=== PATIENT | female | born 1970 | race African-American/Black ===

== ENCOUNTER 2017-06-20 16:08 | Day surgery (SDC) | payer OTHER ==
[2017-06-20] MEDS ORDERED: OMALIZUMAB 150 MG/VIAL ML SQ ONE (16:45)
[2017-06-20] MEDS ORDERED: EPINEPHrine/PF 1 MG/1 ML (1:1,000) AMPULE SQ PRN (16:47)
[2017-06-20 19:10] VITALS: BP 129/71; PULSE 75; TEMP 98.3
== END 2017-06-20 19:53 | disposition home or self-care (01) ==
LOC: JINFUSION 16:08 → J7W 16:09 → JINFUSION 19:53
PROVIDERS: ATTEND Internal Medicine
PROC: 3E013GC Introduction of Other Therapeutic Substance into Subcutaneous Tissue, Percutaneous Approach (ICD-10-PCS; principal; 2017-06-20)
DX: J45.50 Severe persistent asthma, uncomplicated (principal)
CPT/HCPCS: 96372; J2357

== ENCOUNTER 2017-07-25 10:19 | Day surgery (SDC) | payer OTHER ==
[2017-07-25] MEDS ORDERED: OMALIZUMAB 150 MG/VIAL ML SQ ONE ×2 (10:45→11:00)
[2017-07-25 10:46] VITALS: TEMP 98.4
[2017-07-25] MEDS ORDERED: EPINEPHrine/PF 1 MG/1 ML (1:1,000) AMPULE SQ PRN (10:52)
[2017-07-25 12:05] VITALS: PULSE 75
[2017-07-25 12:09] VITALS: BP 139/87
== END 2017-07-25 12:09 | disposition home or self-care (01) ==
LOC: JINFUSION 10:19
PROVIDERS: ATTEND Internal Medicine
PROC: 3E013GC Introduction of Other Therapeutic Substance into Subcutaneous Tissue, Percutaneous Approach (ICD-10-PCS; principal; 2017-07-25)
DX: J45.50 Severe persistent asthma, uncomplicated (principal)
CPT/HCPCS: 96372; J2357

== ENCOUNTER 2017-10-25 09:46 | Day surgery (SDC) | payer OTHER ==
[2017-10-25 10:25] VITALS: BP 140/83; PULSE 84; TEMP 98.8
[2017-10-25] MEDS ORDERED: EPINEPHrine/PF 1 MG/1 ML (1:1,000) AMPULE SQ PRN (10:43)
[2017-10-25] MEDS ORDERED: OMALIZUMAB 150 MG/VIAL ML SQ ONE (10:45)
== END 2017-10-25 12:00 | disposition home or self-care (01) ==
LOC: JINFUSION 09:46 → J7W 09:47 → JINFUSION 12:00
PROVIDERS: ATTEND Internal Medicine
PROC: 3E013GC Introduction of Other Therapeutic Substance into Subcutaneous Tissue, Percutaneous Approach (ICD-10-PCS; principal; 2017-10-25)
DX: J45.50 Severe persistent asthma, uncomplicated (principal)
CPT/HCPCS: 96372; J2357

== ENCOUNTER → 2018-01-03 | Day surgery (SDC) | payer OTHER ==
[~2018-01-03] MED LIST: EPINEPHrine/PF 1 MG/1 ML (1:1,000) AMPULE ONE; EPINEPHrine/PF 1 MG/1 ML (1:1,000) AMPULE SQ ONE; OMALIZUMAB 150 MG/VIAL ML SQ ONE
[2018-01-03 13:31] VITALS: BP 129/77; PULSE 68; TEMP 98.8
== END | disposition home or self-care (01) ==
LOC: JINFUSION 10:46
PROVIDERS: ATTEND Internal Medicine
PROC: 3E013GC Introduction of Other Therapeutic Substance into Subcutaneous Tissue, Percutaneous Approach (ICD-10-PCS; principal; 2018-01-03)
DX: J45.50 Severe persistent asthma, uncomplicated (principal)
CPT/HCPCS: 96372; J2357

== ENCOUNTER 2018-02-15 10:09 | Day surgery (SDC) | payer OTHER ==
[2018-02-15] MEDS ORDERED: EPINEPHrine 1:1,000 0.3 MG/0.3 ML SYR IM PRN (10:40)
[2018-02-15] MEDS ORDERED: OMALIZUMAB 150 MG/VIAL ML SQ ONE (10:45)
[2018-02-15 12:15] VITALS: TEMP 98.2
[2018-02-15 12:16] VITALS: BP 145/74; PULSE 72
== END 2018-02-15 12:16 | disposition home or self-care (01) ==
LOC: JINFUSION 10:09 → J7W 10:09 → JINFUSION 12:16
PROVIDERS: ATTEND Internal Medicine
PROC: 3E013GC Introduction of Other Therapeutic Substance into Subcutaneous Tissue, Percutaneous Approach (ICD-10-PCS; principal; 2018-02-15)
DX: J45.50 Severe persistent asthma, uncomplicated (principal)
CPT/HCPCS: 96372; J2357

== ENCOUNTER 2018-03-21 11:44 | Day surgery (SDC) | payer OTHER ==
[~2018-03-21 11:44] MED LIST changes: -EPINEPHrine/PF 1 MG/1 ML (1:1,000) AMPULE ONE; -EPINEPHrine/PF 1 MG/1 ML (1:1,000) AMPULE SQ ONE; +EPINEPHrine/PF 1 MG/1 ML (1:1,000) AMPULE SQ PRN
[2018-03-21 12:41] VITALS: BP 130/75; PULSE 74; TEMP 97.7
== END 2018-03-21 13:00 | disposition home or self-care (01) ==
LOC: JINFUSION 11:44
PROVIDERS: ATTEND Internal Medicine
PROC: 3E013GC Introduction of Other Therapeutic Substance into Subcutaneous Tissue, Percutaneous Approach (ICD-10-PCS; principal; 2018-03-21)
DX: J45.50 Severe persistent asthma, uncomplicated (principal)
CPT/HCPCS: 96372; J2357

== ENCOUNTER 2018-05-21 15:20 | Day surgery (SDC) | payer OTHER ==
[2018-05-21] MEDS ORDERED: EPINEPHrine/PF 1 MG/1 ML (1:1,000) AMPULE SQ PRN (15:56)
[2018-05-21] MEDS ORDERED: OMALIZUMAB 150 MG/VIAL ML SQ ONE (16:00)
[2018-05-21 17:11] VITALS: TEMP 97.9
[2018-05-21 17:24] VITALS: BP 135/73; PULSE 69
== END 2018-05-21 17:30 | disposition home or self-care (01) ==
LOC: JINFUSION 15:20 → J7W 15:20 → JINFUSION 17:30
PROVIDERS: ATTEND Internal Medicine
PROC: 3E013GC Introduction of Other Therapeutic Substance into Subcutaneous Tissue, Percutaneous Approach (ICD-10-PCS; principal; 2018-05-21)
DX: J45.50 Severe persistent asthma, uncomplicated (principal)
CPT/HCPCS: 96372; J2357

== ENCOUNTER 2018-07-25 15:20 | Day surgery (SDC) | payer OTHER ==
[2018-07-25] MEDS ORDERED: EPINEPHrine/PF 1 MG/1 ML (1:1,000) AMPULE SQ PRN (16:05)
[2018-07-25] MEDS ORDERED: OMALIZUMAB 150 MG/VIAL ML SQ ONE (16:30)
[2018-07-25 16:44] VITALS: TEMP 98.7
[2018-07-25 16:47] VITALS: BP 131/79; PULSE 62
== END 2018-07-25 16:54 | disposition home or self-care (01) ==
LOC: JINFUSION 15:20 → J7W 15:48 → JINFUSION 16:54
PROVIDERS: ATTEND Internal Medicine
PROC: 3E013GC Introduction of Other Therapeutic Substance into Subcutaneous Tissue, Percutaneous Approach (ICD-10-PCS; principal; 2018-07-25)
DX: J45.50 Severe persistent asthma, uncomplicated (principal)
CPT/HCPCS: 96372; J2357

== ENCOUNTER 2018-09-11 15:15 | Day surgery (SDC) | payer OTHER ==
[2018-09-11] MEDS ORDERED: OMALIZUMAB 150 MG/VIAL ML SQ ONE (16:00)
[2018-09-11] MEDS ORDERED: EPINEPHrine/PF 1 MG/1 ML (1:1,000) AMPULE SQ ONE (16:00)
[2018-09-11 16:59] VITALS: TEMP 97.9
[2018-09-11 17:01] VITALS: BP 132/77; PULSE 73
== END 2018-09-11 17:02 | disposition home or self-care (01) ==
LOC: JINFUSION 15:15 → J7W 15:15 → JINFUSION 17:02
PROVIDERS: ATTEND Internal Medicine
PROC: 3E013GC Introduction of Other Therapeutic Substance into Subcutaneous Tissue, Percutaneous Approach (ICD-10-PCS; principal; 2018-09-11)
DX: J45.50 Severe persistent asthma, uncomplicated (principal)
CPT/HCPCS: 96372; J2357

== ENCOUNTER 2018-11-11 15:22 | Day surgery (SDC) | payer OTHER ==
[2018-11-11] MEDS ORDERED: EPINEPHrine/PF 1 MG/1 ML (1:1,000) AMPULE SQ PRN (16:08)
[2018-11-11] MEDS ORDERED: OMALIZUMAB 150 MG/VIAL ML SQ ONE (16:15)
[2018-11-11 18:10] VITALS: TEMP 97.9
[2018-11-11 18:11] VITALS: BP 110/72; PULSE 81
== END 2018-11-11 17:20 | disposition home or self-care (01) ==
LOC: JINFUSION 15:22 → J7W 15:33 → JINFUSION 17:20
PROVIDERS: ATTEND Internal Medicine
PROC: 3E013GC Introduction of Other Therapeutic Substance into Subcutaneous Tissue, Percutaneous Approach (ICD-10-PCS; principal; 2018-11-11)
DX: J45.50 Severe persistent asthma, uncomplicated (principal)
CPT/HCPCS: 96372; J2357

== ENCOUNTER 2018-12-19 15:28 | Day surgery (SDC) | payer OTHER ==
[2018-12-19] MEDS ORDERED: OMALIZUMAB 150 MG/VIAL ML SQ ONE (15:45)
[2018-12-19] MEDS ORDERED: EPINEPHrine 1:1,000 - 30 MG/30 ML VIAL SQ ONE (15:45)
[2018-12-19 16:18] VITALS: TEMP 97.8
[2018-12-19] MEDS ORDERED: EPINEPHrine 1:1,000 - 30 MG/30 ML VIAL SQ PRN (16:33)
[2018-12-19 17:14] VITALS: BP 119/72; PULSE 72
== END 2018-12-19 17:00 | disposition home or self-care (01) ==
LOC: JINFUSION 15:28 → J7W 15:30 → JINFUSION 17:00
PROVIDERS: ATTEND Internal Medicine
PROC: 3E013GC Introduction of Other Therapeutic Substance into Subcutaneous Tissue, Percutaneous Approach (ICD-10-PCS; principal; 2018-12-19)
DX: J45.50 Severe persistent asthma, uncomplicated (principal)
CPT/HCPCS: 96372; J2357

== ENCOUNTER 2019-02-02 15:57 | Day surgery (SDC) | payer OTHER | END 2019-02-02 17:57 | disposition home or self-care (01) | LOC: JINFUSION 15:57 → J7W 16:39 → JINFUSION 17:57 ==

== ENCOUNTER 2019-02-19 15:20 | Day surgery (SDC) | payer OTHER ==
[2019-02-19] MEDS ORDERED: EPINEPHrine/PF 1 MG/1 ML (1:1,000) AMPULE SQ PRN (15:40)
[2019-02-19] MEDS ORDERED: OMALIZUMAB 150 MG/VIAL ML SQ ONE (15:45)
[2019-02-19 16:28] VITALS: BP 141/87; PULSE 88; TEMP 97.9
== END 2019-02-19 16:28 | disposition home or self-care (01) ==
LOC: JINFUSION 15:20 → J7W 15:22 → JINFUSION 16:28
PROVIDERS: ATTEND Internal Medicine
PROC: 3E013GC Introduction of Other Therapeutic Substance into Subcutaneous Tissue, Percutaneous Approach (ICD-10-PCS; principal; 2019-02-19)
DX: J45.50 Severe persistent asthma, uncomplicated (principal)
CPT/HCPCS: 96372; J2357

== ENCOUNTER 2019-03-26 12:56 | Day surgery (SDC) | payer OTHER ==
[2019-03-26] MEDS ORDERED: EPINEPHrine/PF 1 MG/1 ML (1:1,000) AMPULE SQ PRN (13:21)
[2019-03-26] MEDS ORDERED: OMALIZUMAB 150 MG/VIAL ML SQ ONE (13:30)
[2019-03-26 19:09] VITALS: BP 144/72; PULSE 82; TEMP 98.4
== END 2019-03-26 14:30 | disposition home or self-care (01) ==
LOC: JINFUSION 12:56 → J7W 13:11 → JINFUSION 14:30
PROVIDERS: ATTEND Internal Medicine
PROC: 3E013GC Introduction of Other Therapeutic Substance into Subcutaneous Tissue, Percutaneous Approach (ICD-10-PCS; principal; 2019-03-26)
DX: J45.50 Severe persistent asthma, uncomplicated (principal)
CPT/HCPCS: 96372; J2357

== ENCOUNTER 2019-04-03 12:54 | Emergency (ER) | payer OTHER ==
[2019-04-03 12:59] VITALS: BP 118/78; PULSE 79; TEMP 97.8; BMI 39.9
--- NOTE | 2019-04-03 13:29 | PDOC ---
History of Present Illness - General Chief Complaint: Injury Stated Complaint: RT.FOOT PAIN Time Seen by Provider: 04/03/19 13:00 History Source: Patient Exam Limitations: No Limitations - History of Present Illness Initial Comments: 04/03/19 13:32 While at work this morning, [facility] alf, slipped and twisted right ankle , causing an inversion-type injury. States elevated and used ice packs but has continued pain and swelling. Occurred: reports: this morning Severity: reports: mild, moderate Pain Location: reports: lower extremity (right ankle) Method of Injury: Yes: fall Modifying Factors: improves with: cold therapy Loss of Consciousness: no loss of consciousness Associated Symptoms (Fall): denies symptoms Past History - Travel Traveled outside of the country in the last 30 days: No Close contact w/someone who was outside of country & ill: No - Past Medical History Allergies/Adverse Reactions: Allergies Allergy/AdvReac Type Severity Reaction Status Date / Time No Known Allergies Allergy Verified 04/03/19 12:59 Home Medications: Ambulatory Orders Salmeterol/Fluticasone [Advair 250Mcg/50Mcg -] 1 each IH DAILY 06/03/12 Theophylline Anhydrous [Theophylline] 600 mg PO DAILY 06/03/12 Tiotropium [place] [Spiriva] 1 inh IH DAILY 06/03/12 Asthma: Yes COPD: No - Surgical History Abdominal Surgery: Yes Appendectomy: Yes - Suicide/Smoking/Psychosocial Hx Smoking Status: No Smoking History: Never smoked Have you smoked in the past 12 months: No Number of Cigarettes Smoked Daily: 0 Information on smoking cessation initiated: No Hx Alcohol Use: No Drug/Substance Use Hx: No Substance Use Type: None Review of Systems - Review of Systems Able to Perform ROS?: Yes Is the patient limited Swedish proficient: Yes Constitutional: Yes: Symptoms Reported, See HPI Musculoskeletal: Yes: Symptoms Reported, Joint Pain, Joint Swelling All Other Systems: Reviewed and Negative *Physical Exam - Vital Signs Last Vital Signs Temp Pulse Resp BP Pulse Ox 97.8 F 79 19 118/78 99 04/03/19 12:57 04/03/19 12:57 04/03/19 12:57 04/03/19 12:57 04/03/19 12:57 - Physical Exam General Appearance: Yes: Nourished, Appropriately Dressed, Apparent Distress, Mild Distress HEENT: positive: SLICK, Normal ENT Inspection, TMs Normal, Pharynx Normal Neck: positive: Supple. negative: Tender Respiratory/Chest: positive: Lungs Clear Musculoskeletal: positive: Normal Inspection Extremity: positive: Normal Capillary Refill, Normal Range of Motion (patient has minimal tenderness to ankle joint, no true point tenderness to medial or lateral malleolus, no navicular or fifth metatarsal pain. Pain is primarily soft tissue in the midfoot ligamentous areas. Negative squeeze test. Neurovascular intact to toes.) Integumentary: positive: Normal Color, Dry, Warm Neurologic: positive: risk reduction counselor II-XII NML intact, Fully Oriented, Alert, Normal Mood/ Affect, Normal Response, Motor Strength 03/29 ED Treatment Course - RADIOLOGY Radiology Studies Ordered: Category Date Time Status ANKLE-RIGHT [RAD] Stat Radiology 04/03/19 13:00 Ordered *DC/Admit/Observation/Transfer Diagnosis at time of Disposition: Right ankle sprain Qualifiers: Encounter type: initial encounter Involved ligament of ankle: unspecified ligament Qualified Code(s): S93.401A - Sprain of unspecified ligament of right ankle, initial encounter - Discharge Dispostion Disposition: HOME Condition at time of disposition: Stable Decision to Admit order: No - Referrals Referrals: Gen Rocha MD [Staff Physician] - - Patient Instructions Printed Discharge Instructions: DI for Ankle Sprain Additional Instructions: Rest, ice to area on and off for 15 minutes 4-6 times a day Avoid heavy lifting or exercise until pain and swelling is resolved or until further directed Keep area highly elevated to reduce swelling Use splints/Jac wrap as directed Followup with orthopedist in one to 2 days if not improving, if significantly improved may wait one week for followup with orthopedist May use ibuprofen every 6 hours as needed for pain - Post Discharge Activity Forms/Work/School Notes: Back to Work
== END 2019-04-03 13:40 | disposition home or self-care (01) ==
LOC: JERFT 12:54
DX: S93.401A Sprain of unspecified ligament of right ankle, initial encounter (principal); W01.0XXA Fall on same level from slipping, tripping and stumbling without subsequent striking against object, initial encounter; Y93.89 Activity, other specified; Y92.129 Unspecified place in nursing home as the place of occurrence of the external cause; Y99.0 Civilian activity done for income or pay
CPT/HCPCS: 73610-TC-RT-FY; 99281-25

== ENCOUNTER 2019-05-01 15:16 | Day surgery (SDC) | payer OTHER | END 2019-05-01 17:05 | disposition home or self-care (01) | LOC: JINFUSION 15:16 → J7W 15:24 → JINFUSION 17:05 ==

== ENCOUNTER 2019-06-05 15:49 | Day surgery (SDC) | payer OTHER ==
[2019-06-05] MEDS ORDERED: EPINEPHrine/PF 1 MG/1 ML (1:1,000) AMPULE SQ PRN (16:17)
[2019-06-05] MEDS ORDERED: OMALIZUMAB 150 MG/VIAL ML SQ ONE (16:30)
[2019-06-05 17:41] VITALS: BP 121/76; PULSE 77; TEMP 98.9
== END 2019-06-05 18:00 | disposition home or self-care (01) ==
LOC: JINFUSION 15:49 → J7W 16:00 → JINFUSION 18:00
PROVIDERS: ATTEND Internal Medicine
PROC: 3E013GC Introduction of Other Therapeutic Substance into Subcutaneous Tissue, Percutaneous Approach (ICD-10-PCS; principal; 2019-06-05)
DX: J45.50 Severe persistent asthma, uncomplicated (principal)
CPT/HCPCS: 96372; J2357

== ENCOUNTER 2019-07-09 11:30 | Day surgery (SDC) | payer OTHER ==
[2019-07-09] MEDS ORDERED: EPINEPHrine/PF 1 MG/1 ML (1:1,000) AMPULE SQ PRN (12:15)
[2019-07-09] MEDS ORDERED: OMALIZUMAB 150 MG/VIAL ML SQ ONE (13:00)
[2019-07-09 18:18] VITALS: BP 137/83; PULSE 74; TEMP 98.5
== END 2019-07-09 14:15 | disposition home or self-care (01) ==
LOC: J7W 11:30 → JINFUSION 11:30
PROVIDERS: ATTEND Internal Medicine
PROC: 3E013GC Introduction of Other Therapeutic Substance into Subcutaneous Tissue, Percutaneous Approach (ICD-10-PCS; principal; 2019-07-09)
DX: J45.50 Severe persistent asthma, uncomplicated (principal)
CPT/HCPCS: 96372; J2357

== ENCOUNTER 2019-08-10 08:47 | Day surgery (SDC) | payer OTHER ==
[2019-08-10] MEDS ORDERED: OMALIZUMAB 150 MG/VIAL ML SQ ONE (09:15)
[2019-08-10] MEDS ORDERED: EPINEPHrine/PF 1 MG/1 ML (1:1,000) AMPULE SQ PRN (09:21)
[2019-08-10 16:38] VITALS: BP 121/73; PULSE 75; TEMP 98.4
== END 2019-08-10 11:20 | disposition home or self-care (01) ==
LOC: JINFUSION 08:47 → J7W 08:57 → JINFUSION 11:20
PROVIDERS: ATTEND Internal Medicine
PROC: 3E013GC Introduction of Other Therapeutic Substance into Subcutaneous Tissue, Percutaneous Approach (ICD-10-PCS; principal; 2019-08-10)
DX: J45.50 Severe persistent asthma, uncomplicated (principal)
CPT/HCPCS: 96372; J2357

== ENCOUNTER 2019-09-17 09:56 | Day surgery (SDC) | payer OTHER ==
[2019-09-17] MEDS ORDERED: EPINEPHrine/PF 1 MG/1 ML (1:1,000) AMPULE SQ ONE (10:45)
[2019-09-17] MEDS ORDERED: OMALIZUMAB 150 MG/VIAL ML SQ ONE ×2 (10:45→11:15)
[2019-09-17 14:50] VITALS: BP 146/83; PULSE 74; TEMP 98.4
== END 2019-09-17 11:40 | disposition home or self-care (01) ==
LOC: JINFUSION 09:56 → J7W 09:57 → JINFUSION 11:40
PROVIDERS: ATTEND Internal Medicine
PROC: 3E013GC Introduction of Other Therapeutic Substance into Subcutaneous Tissue, Percutaneous Approach (ICD-10-PCS; principal; 2019-09-17)
DX: J45.50 Severe persistent asthma, uncomplicated (principal)
CPT/HCPCS: 96372; J2357

== ENCOUNTER 2019-10-28 15:10 | Day surgery (SDC) | payer OTHER ==
[2019-10-28] MEDS ORDERED: EPINEPHrine/PF 1 MG/1 ML (1:1,000) AMPULE SQ PRN (16:10)
[2019-10-28] MEDS ORDERED: OMALIZUMAB 150 MG/VIAL ML SQ ONE (16:15)
[2019-10-28 18:58] VITALS: BP 125/75; PULSE 83; TEMP 98.9
== END 2019-10-28 17:20 | disposition home or self-care (01) ==
LOC: JINFUSION 15:10 → J7W 15:11 → JINFUSION 17:20
PROVIDERS: ATTEND Internal Medicine
PROC: 3E013GC Introduction of Other Therapeutic Substance into Subcutaneous Tissue, Percutaneous Approach (ICD-10-PCS; principal; 2019-10-28)
DX: J45.50 Severe persistent asthma, uncomplicated (principal)
CPT/HCPCS: 96372; J2357

== ENCOUNTER 2019-12-11 15:21 | Day surgery (SDC) | payer OTHER ==
[2019-12-11] MEDS ORDERED: EPINEPHrine/PF 1 MG/1 ML (1:1,000) AMPULE SQ PRN (15:40)
[2019-12-11] MEDS ORDERED: OMALIZUMAB 150 MG/VIAL ML SQ ONE (15:45)
[2019-12-11 16:41] VITALS: TEMP 97.9
[2019-12-11 16:56] VITALS: BP 133/79; PULSE 75
== END 2019-12-11 16:57 | disposition home or self-care (01) ==
LOC: JINFUSION 15:21 → J7W 15:24 → JINFUSION 16:57
PROVIDERS: ATTEND Internal Medicine
PROC: 3E013GC Introduction of Other Therapeutic Substance into Subcutaneous Tissue, Percutaneous Approach (ICD-10-PCS; principal; 2019-12-11)
DX: J45.50 Severe persistent asthma, uncomplicated (principal)
CPT/HCPCS: 96372; J2357

== ENCOUNTER 2020-01-14 15:22 | Day surgery (SDC) | payer OTHER ==
[2020-01-14] MEDS ORDERED: EPINEPHrine/PF 1 MG/1 ML (1:1,000) AMPULE SQ PRN (16:30)
[2020-01-14] MEDS ORDERED: OMALIZUMAB 150 MG/VIAL ML SQ ONE ×2 (16:45→17:00)
[2020-01-14 19:11] VITALS: BP 147/78; PULSE 78; TEMP 97.9
== END 2020-01-14 17:45 | disposition home or self-care (01) ==
LOC: JINFUSION 15:22 → J7W 15:23 → JINFUSION 17:45
PROVIDERS: ATTEND Internal Medicine
PROC: 3E013GC Introduction of Other Therapeutic Substance into Subcutaneous Tissue, Percutaneous Approach (ICD-10-PCS; principal; 2020-01-14)
DX: J45.50 Severe persistent asthma, uncomplicated (principal)
CPT/HCPCS: 96372; J2357

== ENCOUNTER 2020-06-23 10:17 | Day surgery (SDC) | payer OTHER ==
[2020-06-23] MEDS ORDERED: EPINEPHrine/PF 1 MG/1 ML (1:1,000) AMPULE SQ PRN (10:40)
[2020-06-23] MEDS ORDERED: OMALIZUMAB SQ ONE (10:45)
[2020-06-23 11:58] VITALS: BP 141/85; PULSE 73; TEMP 98.7
== END 2020-06-23 11:20 | disposition home or self-care (01) ==
LOC: JINFUSION 10:17 → J7W 10:21 → JINFUSION 10:21
PROVIDERS: ATTEND Internal Medicine
PROC: 3E013GC Introduction of Other Therapeutic Substance into Subcutaneous Tissue, Percutaneous Approach (ICD-10-PCS; principal; 2020-06-23)
DX: J45.50 Severe persistent asthma, uncomplicated (principal)
CPT/HCPCS: 96372; J2357

== ENCOUNTER 2020-08-08 10:15 | Emergency (ER) | payer OTHER ==
--- NOTE | 2020-08-08 11:03 | TELE ---
HPI Do you have fever,cough or shortness of breath?: No - General Reason For Visit: COVID 19 TESTING History Source: Patient Exam Limitations: No Limitations Past History - Travel History Traveled outside of the country in the last 30 days: No Close contact w/someone who was outside of country & ill: No - Medical History Allergies/Adverse Reactions: Allergies Allergy/AdvReac Type Severity Reaction Status Date / Time No Known Allergies Allergy Verified 04/03/19 12:59 Home Medications: Ambulatory Orders Theophylline Anhydrous [Theophylline] 600 mg PO DAILY 06/03/12 Naproxen [Naprosyn -] 500 mg PO BID #30 tablet 04/03/19 Proair Hfa 1 inh IH ASDIR 07/09/19 Asthma: Yes COPD: No - Surgical History Abdominal Surgery: Yes Appendectomy: Yes - Psycho-Social/Smoking History Smoking Status: No Smoking History: Never smoked Have you smoked in the past 12 months: No Number of Cigarettes Smoked Daily: 0 Review of Systems - Review of Systems Able to Perform ROS?: Yes Comments:: 08/08/20 11:21 CONSTITUTIONAL: Absent: fever, chills, diaphoresis, generalized weakness, malaise, loss of appetite HEENT: Absent: rhinorrhea, nasal congestion, throat pain, throat swelling, difficulty swallowing, mouth swelling, ear pain, eye pain, visual Changes CARDIOVASCULAR: Absent: chest pain, loss of consciousness, palpitations, irregular heart rate, peripheral edema RESPIRATORY: Absent: cough, shortness of breath, dyspnea with exertion, orthopnea, wheezing, stridor, hemoptysis GASTROINTESTINAL: Absent: abdominal pain, abdominal distension, nausea, vomiting, diarrhea, constipation, melena, hematochezia SKIN: Absent: rash, itching, pallor NEUROLOGIC: Absent: headache, focal weakness or paresthesias, dizziness, unsteady gait, seizure, mental status changes, bladder or bowel incontinence PSYCHIATRIC: Absent: anxiety, depression, suicidal or homicidal ideation, hallucinations. Limited Spanish proficient: No *Physical Exam - Physical Exam 08/08/20 11:22 GENERAL: Well developed, well nourished. Awake and alert. No acute distress. PULMONARY: No evidence of respiratory distress. NEUROLOGICAL: Alert, awake, appropriate. PSYCHIATRIC: Cooperative. Good eye contact. Appropriate mood and affect. - Medical Decision Making 08/08/20 11:22 The patient is a 49-year-old female with past medical history of asthma, who presents to telehealth urgent care for a COVID test. She states that she needs a negative COVID test before she can receive her Zolia shot for her asthma. She has no current symptoms of COVID. Denies current wheezing or asthma flare. A/P: Need for COVID test Telehealth visit conducted over the phone as patient never received the text message for a video chat. No respiratory distress over the phone, no wheezing noted. COVID test ordered. Patient instructed to go to [facility]. Discharge Diagnosis at time of Disposition: Counseled about COVID-19 virus infection - Referrals Follow-up Referral(s): Rosales Galindo MD [Primary Care Provider] - - Patient Instructions Discharge Instructions: [facility] COVID-19 Isolation Protocol
== END 2020-08-08 11:24 | disposition home or self-care (01) ==
LOC: JVIRT 10:15
DX: Z11.59 Encounter for screening for other viral diseases (principal)
CPT/HCPCS: Q3014-GT; U0003

== ENCOUNTER 2020-09-29 10:15 | Day surgery (SDC) | payer OTHER ==
[2020-09-29] MEDS ORDERED: EPINEPHrine/PF 1 MG/1 ML (1:1,000) AMPULE SQ PRN (10:29)
[2020-09-29] MEDS ORDERED: OMALIZUMAB SQ ONE (11:00)
[2020-09-29 11:30] VITALS: BP 122/78; PULSE 76; TEMP 98.4
== END 2020-09-29 11:05 | disposition home or self-care (01) ==
LOC: JINFUSION 10:15
PROVIDERS: ATTEND Internal Medicine
PROC: 3E013GC Introduction of Other Therapeutic Substance into Subcutaneous Tissue, Percutaneous Approach (ICD-10-PCS; principal; 2020-09-29)
DX: J45.50 Severe persistent asthma, uncomplicated (principal)
CPT/HCPCS: 96372; J2357

== ENCOUNTER 2020-11-15 10:45 | Day surgery (SDC) | payer OTHER ==
[2020-11-15] MEDS ORDERED: EPINEPHrine 1:1,000 - 30 MG/30 ML VIAL SQ PRN (11:05)
[2020-11-15] MEDS ORDERED: OMALIZUMAB SQ ONE (11:15)
[2020-11-15 15:52] VITALS: TEMP 98.5
[2020-11-15 15:59] VITALS: BP 149/91; PULSE 75
== END 2020-11-15 11:45 | disposition home or self-care (01) ==
LOC: JINFUSION 10:45 → EDSTATUS 10:51 → JINFUSION 11:45
PROVIDERS: ATTEND Internal Medicine
PROC: 3E013GC Introduction of Other Therapeutic Substance into Subcutaneous Tissue, Percutaneous Approach (ICD-10-PCS; principal; 2020-11-15)
DX: J45.50 Severe persistent asthma, uncomplicated (principal)
CPT/HCPCS: 96372; J2357

== ENCOUNTER 2021-03-02 11:26 | Day surgery (SDC) | payer OTHER ==
[2021-03-02] MEDS ORDERED: OMALIZUMAB SQ ONE (12:45)
[2021-03-02] MEDS ORDERED: EPINEPHrine/PF 1 MG/1 ML (1:1,000) AMPULE SQ SCH (12:45)
[2021-03-02 14:08] VITALS: BP 129/77; PULSE 80; TEMP 98.7
== END 2021-03-02 13:15 | disposition home or self-care (01) ==
LOC: JINFUSION 11:26
PROVIDERS: ATTEND Internal Medicine
PROC: 3E013GC Introduction of Other Therapeutic Substance into Subcutaneous Tissue, Percutaneous Approach (ICD-10-PCS; principal; 2021-03-02)
DX: J45.50 Severe persistent asthma, uncomplicated (principal)
CPT/HCPCS: 96372; J2357

== ENCOUNTER 2021-04-19 08:19 | Day surgery (SDC) | payer OTHER ==
[2021-04-19] MEDS ORDERED: EPINEPHrine/PF 1 MG/1 ML (1:1,000) AMPULE SQ PRN (15:39)
[2021-04-19] MEDS ORDERED: OMALIZUMAB SQ ONE (15:45)
[2021-04-19 17:07] VITALS: BP 135/81; PULSE 78; TEMP 98.5
== END 2021-04-19 16:15 | disposition home or self-care (01) ==
LOC: JINFUSION 08:19
PROVIDERS: ATTEND Internal Medicine
PROC: 3E013GC Introduction of Other Therapeutic Substance into Subcutaneous Tissue, Percutaneous Approach (ICD-10-PCS; principal; 2021-04-19)
DX: J45.50 Severe persistent asthma, uncomplicated (principal)
CPT/HCPCS: 96372; J2357

== ENCOUNTER 2021-06-02 15:07 | Day surgery (SDC) | payer OTHER ==
[~2021-06-02 15:07] MED LIST changes: -OMALIZUMAB 150 MG/VIAL ML SQ ONE; +OMALIZUMAB SQ ONE
[2021-06-02 17:21] VITALS: BP 133/87; PULSE 67; TEMP 98.5
== END 2021-06-02 15:45 | disposition home or self-care (01) ==
LOC: JINFUSION 15:07
PROVIDERS: ATTEND Internal Medicine
PROC: 3E013GC Introduction of Other Therapeutic Substance into Subcutaneous Tissue, Percutaneous Approach (ICD-10-PCS; principal; 2021-06-02)
DX: J45.50 Severe persistent asthma, uncomplicated (principal)
CPT/HCPCS: 96372; J2357

== ENCOUNTER 2021-06-17 15:43 | Emergency (ER) | payer OTHER ==
[2021-06-17 16:01] VITALS: BP 149/78; PULSE 75; TEMP 98.7; BMI 38.2
[2021-06-17 16:46] LABS: BASO % 1.4 % (0-2.0); EOS % 3.4 % (0-4.5); HEMOGLOBIN 12.2 GM/dL (10.7-15.3); LYMPH % 23.5 % (8-40); MCH 27.1 pg (25.7-33.7); MCHC 32.9 g/dl (32.0-36.0); MEAN CELL VOLUME 82.5 fl (80-96); MEAN PLT VOLUME 8.1 fl (7.5-11.1); MONO % 6.9 % (3.8-10.2); NEUT % 64.8 % (42.8-82.8); PLATELET COUNT 361 10^3/uL (134-434); RBC 4.49 M/mm3 (3.60-5.2); RDW 14.9 % (11.6-15.6); WHITE BLOOD COUNT 12.7 K/mm3 (4.0-10.0)
[2021-06-17 17:05] LABS: URINE APPEARANCE CLEAR; URINE BILIRUBIN NEGATIVE (NEGATIVE); URINE COLOR YELLOW; URINE GLUCOSE (UA) NEGATIVE (NEGATIVE); URINE KETONE NEGATIVE (NEGATIVE); URINE LEUK ESTERASE NEGATIVE (NEGATIVE); URINE NITRITE NEGATIVE (NEGATIVE); URINE PROTEIN NEGATIVE (NEGATIVE); URINE UROBILINOGEN 0.2 mg/dL (0.2-1.0)
[2021-06-17 17:05] LABS: CHLORIDE 102 mmol/L (98-107); SODIUM 137 mmol/L (136-145)
[2021-06-17 17:08] LABS: ALBUMIN 4.1 g/dl (3.4-5.0); ANION GAP 8 MMOL/L (8-16); BLOOD UREA NITROGEN 12.8 mg/dL (7-18); CALCIUM 8.8 mg/dL (8.5-10.1); CO2 28 mmol/L (21-32); GLUCOSE,RANDOM 102 mg/dL (74-106)
[2021-06-17 17:11] LABS: CREATININE 0.8 mg/dL (0.55-1.3); SGOT/AST 14 U/L (15-37); SGPT/ALT 25 U/L (13-61)
[2021-06-17 17:13] LABS: BILIRUBIN,TOTAL 0.2 mg/dL (0.2-1); TOT PROT 8.2 g/dl (6.4-8.2)
[2021-06-17 17:14] LABS: ALK PHOS 59 U/L (45-117)
== END 2021-06-17 17:37 | disposition home or self-care (01) ==
LOC: JER 15:43
DX: R53.1 Weakness (principal)
CPT/HCPCS: 36415; 80053; 81003; 82550; 82962; 84484; 85025; 93005; 93010; 99283-25

== ENCOUNTER 2021-07-25 11:49 | Day surgery (SDC) | payer OTHER ==
[2021-07-25] MEDS ORDERED: OMALIZUMAB SQ ONE (12:15)
[2021-07-25] MEDS ORDERED: EPINEPHrine/PF 1 MG/1 ML (1:1,000) AMPULE SQ PRN (12:15)
[2021-07-25] MEDS ORDERED: EPINEPHrine/PF 1 MG/1 ML (1:1,000) AMPULE SQ ONE (12:15)
[2021-07-25 16:29] VITALS: BP 125/89; PULSE 74; TEMP 98.4
== END 2021-07-25 13:05 | disposition home or self-care (01) ==
LOC: JINFUSION 11:49 → J7W 11:50 → JINFUSION 13:05
PROVIDERS: ATTEND Internal Medicine
PROC: 3E013GC Introduction of Other Therapeutic Substance into Subcutaneous Tissue, Percutaneous Approach (ICD-10-PCS; principal; 2021-07-25)
DX: J45.50 Severe persistent asthma, uncomplicated (principal)
CPT/HCPCS: 96372; J2357

== ENCOUNTER 2021-08-30 10:09 | Day surgery (SDC) | payer OTHER ==
[2021-08-30] MEDS ORDERED: EPINEPHrine/PF 1 MG/1 ML (1:1,000) AMPULE SQ PRN (10:10)
[2021-08-30] MEDS ORDERED: OMALIZUMAB SQ ONE (10:15)
[2021-08-30 15:07] VITALS: BP 108/70; PULSE 72; TEMP 98.1
== END 2021-08-30 11:10 | disposition home or self-care (01) ==
LOC: JINFUSION 10:09 → J7W 10:13 → JINFUSION 11:10
PROVIDERS: ATTEND Internal Medicine
PROC: 3E013GC Introduction of Other Therapeutic Substance into Subcutaneous Tissue, Percutaneous Approach (ICD-10-PCS; principal; 2021-08-30)
DX: J45.50 Severe persistent asthma, uncomplicated (principal)
CPT/HCPCS: 96372; J2357

== ENCOUNTER 2021-10-30 10:48 | Day surgery (SDC) | payer OTHER ==
[2021-10-30] MEDS ORDERED: EPINEPHrine/PF 1 MG/1 ML (1:1,000) AMPULE SQ PRN (11:07)
[2021-10-30] MEDS ORDERED: OMALIZUMAB SQ ONE (11:30)
[2021-10-30 12:40] VITALS: BP 125/71; PULSE 81
[2021-10-30 15:27] VITALS: TEMP 98.4
== END 2021-10-30 12:00 | disposition home or self-care (01) ==
LOC: JINFUSION 10:48 → J7W 10:50 → JINFUSION 12:00
PROVIDERS: ATTEND Internal Medicine
PROC: 3E013GC Introduction of Other Therapeutic Substance into Subcutaneous Tissue, Percutaneous Approach (ICD-10-PCS; principal; 2021-10-30)
DX: J45.50 Severe persistent asthma, uncomplicated (principal)
CPT/HCPCS: 96372; J2357

== ENCOUNTER 2021-12-26 10:25 | Day surgery (SDC) | payer OTHER ==
[2021-12-26 17:17] VITALS: BP 121/79; PULSE 74; TEMP 98.2
== END 2021-12-26 11:20 | disposition home or self-care (01) ==
LOC: JINFUSION 10:25
PROVIDERS: ATTEND Internal Medicine
PROC: 3E013GC Introduction of Other Therapeutic Substance into Subcutaneous Tissue, Percutaneous Approach (ICD-10-PCS; principal; 2021-12-26)
DX: J45.50 Severe persistent asthma, uncomplicated (principal)
CPT/HCPCS: 96372; J2357

== ENCOUNTER 2022-03-15 10:24 | Day surgery (SDC) | payer OTHER ==
[2022-03-15 18:14] VITALS: BP 111/74; PULSE 81; TEMP 98.4
== END 2022-03-15 11:15 | disposition home or self-care (01) ==
LOC: JINFUSION 10:24 → J7W 10:25 → JINFUSION 11:15
PROVIDERS: ATTEND Internal Medicine
PROC: 3E013GC Introduction of Other Therapeutic Substance into Subcutaneous Tissue, Percutaneous Approach (ICD-10-PCS; principal; 2022-03-15)
DX: J45.50 Severe persistent asthma, uncomplicated (principal)
CPT/HCPCS: 96372; J2357

== ENCOUNTER 2022-07-17 04:48 | Day surgery (SDC) | payer OTHER ==
[2022-07-12 16:12] VITALS: BMI 40.7
[2022-07-17 09:26] VITALS: TEMP 97.8
[2022-07-17 10:15] VITALS: BP 113/66; PULSE 73; RESP 18
== END 2022-07-17 10:35 | disposition home or self-care (01) ==
LOC: JASU-ENDO 04:48
PROVIDERS: ATTEND Internal Medicine Gastroenterology
PROC: 0DBN8ZX Excision of Sigmoid Colon, Via Natural or Artificial Opening Endoscopic, Diagnostic (ICD-10-PCS; 2022-07-17)
PROC: 0DBK8ZX Excision of Ascending Colon, Via Natural or Artificial Opening Endoscopic, Diagnostic (ICD-10-PCS; principal; 2022-07-17 08:45)
DX: Z12.11 Encounter for screening for malignant neoplasm of colon (principal); D12.2 Benign neoplasm of ascending colon; D12.5 Benign neoplasm of sigmoid colon; K64.8 Other hemorrhoids; K59.89 Other specified functional intestinal disorders
CPT/HCPCS: 81025; 82962; 88305-TC

== ENCOUNTER 2022-10-23 21:30 | Emergency (ER) | payer OTHER ==
[2022-10-23 21:37] VITALS: BMI 38.2
[2022-10-23] MEDS ORDERED: ALBUTEROL SO4 2.5/IPRATROPIUM 0.5 INH SOL 3 ML VIAL.NEB. NEB STA (22:50)
[2022-10-23 23:13] VITALS: BP 135/85; RESP 22; TEMP 99.4
[2022-10-23] MEDS ORDERED: ALBUTEROL SO4 2.5/IPRATROPIUM 0.5 INH SOL 3 ML VIAL.NEB. NEB ONE (23:15)
[2022-10-23] MEDS ORDERED: guaiFENesin 200 MG/10 ML 10 ML UNIT-DOSE CUPS PO ONE (23:43)
[2022-10-23] MEDS ORDERED: guaiFENesin 200 MG/10 ML 10 ML UNIT-DOSE CUPS ONE (23:54)
[2022-10-24] MEDS ORDERED: DEXAMETHASONE SOD PHOSPHATE 10 MG/1 ML VIAL IM ONE (00:21)
[2022-10-24] MEDS ORDERED: DEXAMETHASONE SOD PHOSPHATE 10 MG/1 ML VIAL ONE (00:23)
[2022-10-24 00:25] VITALS: PULSE 99
== END 2022-10-24 00:28 | disposition home or self-care (01) ==
LOC: JER 21:30
PROC: 3E0F7GC Introduction of Other Therapeutic Substance into Respiratory Tract, Via Natural or Artificial Opening (ICD-10-PCS; principal; 2022-10-23)
PROC: 3E023GC Introduction of Other Therapeutic Substance into Muscle, Percutaneous Approach (ICD-10-PCS; 2022-10-23)
DX: R05.9 Cough, unspecified (principal)
CPT/HCPCS: 0241U-QW; 71046-TC-FY; 99284-25; J1100

== ENCOUNTER 2023-05-20 20:16 | Emergency (ER) | payer OTHER ==
[2023-05-20 20:20] VITALS: BP 129/89; PULSE 78; RESP 16; TEMP 98.2; BMI 41.5
[2023-05-20] MEDS ORDERED: ACETAMINOPHEN 500 MG TABLET (FP) PO ONE (21:30)
[2023-05-20] MEDS ORDERED: KETOROLAC TROMETHAMINE 30 MG/1 ML VIAL IM ONE (21:30)
[2023-05-20] MEDS ORDERED: KETOROLAC TROMETHAMINE 30 MG/1 ML VIAL ONE (21:34)
[2023-05-20] MEDS ORDERED: ACETAMINOPHEN 500 MG TABLET (FP) ONE (21:34)
== END 2023-05-20 23:00 | disposition home or self-care (01) ==
LOC: JERFT 20:16
PROC: 3E0233Z Introduction of Anti-inflammatory into Muscle, Percutaneous Approach (ICD-10-PCS; principal; 2023-05-20)
DX: M54.9 Dorsalgia, unspecified (principal); V43.52XA Car driver injured in collision with other type car in traffic accident, initial encounter
CPT/HCPCS: 99284-25

== ENCOUNTER 2023-06-07 06:46 | Emergency (ER) | payer OTHER ==
[2023-06-07 07:02] VITALS: BP 158/97; PULSE 78; RESP 18; TEMP 97.9; BMI 39.9
[2023-06-07] MEDS ORDERED: DEXAMETHASONE SOD PHOSPHATE 10 MG/1 ML VIAL IM ONE (07:53)
[2023-06-07] MEDS ORDERED: KETOROLAC TROMETHAMINE 30 MG/1 ML VIAL IM ONE (07:53)
[2023-06-07] MEDS ORDERED: ACETAMINOPHEN 325 MG TABLET (FP) PO ONE (07:53)
[2023-06-07] MEDS ORDERED: ACETAMINOPHEN 325 MG TABLET (FP) ONE (08:01)
[2023-06-07] MEDS ORDERED: KETOROLAC TROMETHAMINE 30 MG/1 ML VIAL ONE (08:01)
[2023-06-07] MEDS ORDERED: DEXAMETHASONE SOD PHOSPHATE 10 MG/1 ML VIAL ONE (08:01)
== END 2023-06-07 09:47 | disposition home or self-care (01) ==
LOC: JER 06:46 → JERFT 06:46
PROC: 3E0233Z Introduction of Anti-inflammatory into Muscle, Percutaneous Approach (ICD-10-PCS; principal; 2023-06-07)
PROC: 3E023GC Introduction of Other Therapeutic Substance into Muscle, Percutaneous Approach (ICD-10-PCS; 2023-06-07)
DX: G56.01 Carpal tunnel syndrome, right upper limb (principal); M79.641 Pain in right hand
CPT/HCPCS: 73130-TC-RT-FY; 99284-25; J1100

== ENCOUNTER 2023-07-22 11:55 | Emergency (ER) | payer OTHER ==
[2023-07-22 12:06] VITALS: BP 144/92; PULSE 82; RESP 20; TEMP 98.3; BMI 40.2
[2023-07-22] MEDS ORDERED: KETOROLAC TROMETHAMINE 30 MG/1 ML VIAL IM ONE (13:19)
[2023-07-22] MEDS ORDERED: ACETAMINOPHEN 500 MG TABLET (FP) PO ONE (13:19)
[2023-07-22] MEDS ORDERED: LIDOCAINE 5% TOPICAL PATCH TP ONE (13:19)
[2023-07-22] MEDS ORDERED: oxyCODONE HCL 5 MG TABLET PO ONE (14:19)
[2023-07-22] MEDS ORDERED: LIDOCAINE 5% TOPICAL PATCH ONE (14:38)
[2023-07-22] MEDS ORDERED: KETOROLAC TROMETHAMINE 30 MG/1 ML VIAL ONE (14:38)
[2023-07-22] MEDS ORDERED: oxyCODONE HCL 5 MG TABLET ONE (14:38)
[2023-07-22] MEDS ORDERED: ACETAMINOPHEN 500 MG TABLET (FP) ONE (14:39)
[2023-07-22] MEDS ORDERED: LIDOCAINE PATCH REMOVAL MC SCH (22:00)
== END 2023-07-22 14:59 | disposition home or self-care (01) ==
LOC: JER 11:55
PROC: 3E0233Z Introduction of Anti-inflammatory into Muscle, Percutaneous Approach (ICD-10-PCS; principal; 2023-07-22)
DX: M54.50 Low back pain, unspecified (principal); X50.1XXA Overexertion from prolonged static or awkward postures, initial encounter
CPT/HCPCS: 72100-TC-FY; 74019-TC-FY; 99284-25